=== PATIENT | female | born 1995 | race Two or more races ===

== ENCOUNTER 2020-12-13 16:00 | Emergency (ER) | payer MEDICAID, OTHER ==
[~2020-12-13] VITALS: Ht 160 cm; Wt 99.8 kg
[~2020-12-13 16:00] MED LIST: CALC-386 OR; IRONTAB35 OR; PREN-129 OR
== END 2020-12-13 17:02 | disposition left against medical advice (07) ==
LOC: ER 16:00
DX: O20.8 Other hemorrhage in early pregnancy (principal); Z3A.01 Less than 8 weeks gestation of pregnancy; Z53.21 Procedure and treatment not carried out due to patient leaving prior to being seen by health care provider

== ENCOUNTER 2024-08-31 12:43 | Emergency (ER) | payer OTHER ==
[~2024-08-31] VITALS: Ht 160 cm; Wt 104.3 kg
[2024-08-31 13:31] VITALS: BP 123/71; PULSE 111; RESP 20; TEMP 98.9; O2SAT 97
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
[2024-08-31] MEDS ORDERED: ACET-1304 PO (13:54)
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
== END 2024-08-31 13:59 | disposition home or self-care (01) ==
LOC: ER 12:43
DX: S16.1XXA Strain of muscle, fascia and tendon at neck level, initial encounter (principal); V43.52XA Car driver injured in collision with other type car in traffic accident, initial encounter; Y93.I9 Activity, other involving external motion; Y92.488 Other paved roadways as the place of occurrence of the external cause; Y99.8 Other external cause status
CPT/HCPCS: 72040